=== PATIENT | female | born 1950 | race Caucasian/White ===

== ENCOUNTER 2016-10-11 14:32 | Emergency (ER) | payer BC ==
[~2016-10-11] VITALS: Ht 160 cm; Wt 67.6 kg
[~2016-10-11 14:32] MED LIST: FLUT12AE5 IH; FLUT50DI IH; MONT10TA22 PO; PRO40 PO
[2016-10-11 14:43] VITALS: BP_SYST 163
[2016-10-11 15:23] LABS: BASOPHILS # (AUTO) 0.1 K/uL (0.0-0.2); BASOPHILS % (AUTO) 0.9 % (0.0-2.0); EOSINOPHILS # (AUTO) 0.1 K/uL (0.0-0.4); EOSINOPHILS % (AUTO) 2.1 % (0.0-4.0); HEMATOCRIT 42.1 % (36-48); HEMOGLOBIN 14.7 g/dL (12.0-16.0); LYMPHOCYTES # (AUTO) 0.9 K/uL (1.0-5.5); MEAN CORPUSCULAR HEMOGLOBIN 32 pg (27-31); MEAN CORPUSCULAR HGB CONC 35 % (32-36); MEAN CORPUSCULAR VOLUME 91 fL (79.0-98.0); MONOCYTES # (AUTO) 0.4 K/uL (0.0-1.0); MONOCYTES % (AUTO) 6.9 % (1.7-9.3); NEUTROPHILS # (AUTO) 4.7 K/uL (1.8-7.7); NEUTROPHILS % (AUTO) 75.1 % (40.0-70.0); PLATELET COUNT (AUTO) 159 K/uL (130-430); RED CELL DISTRIBUTION WIDTH 11.8 % (9.0-15.0); WHITE BLOOD COUNT (AUTO) 6.2 K/uL (4.8-10.8)
--- NOTE | 2016-10-11 15:31 | NUR ---
Patient to ER bed H1 to gown for evaluation. Side rails up.
[2016-10-11 15:40] LABS: CALCIUM 9.5 mg/dL (8.4-11.0); CREATININE 1.46 mg/dL (0.55-1.30)
[2016-10-11 15:45] LABS: ALBUMIN 4.3 g/dL (3.4-4.8); TOTAL PROTEIN, SERUM 7.5 g/dL (6.4-8.3)
[2016-10-11 15:53] LABS: BILIRUBIN,URINE NEGATIVE (NEGATIVE); CLARITY/URINE CLEAR (CLEAR); COLOR,URINE YELLOW (YELLOW); GLUCOSE,URINE NEGATIVE (NEGATIVE); KETONES,URINE NEGATIVE (NEGATIVE); LEUKOCYTE ESTERASE ,URINE NEGATIVE (NEGATIVE); NITRITE, URINE NEGATIVE (NEGATIVE); PROTEIN URINE NEGATIVE (NEGATIVE); UROBILINOGEN,URINE 0.2 (0.2-1.0)
[2016-10-11 16:30] LABS: BLOOD, URINE TRACE (NEGATIVE)
--- NOTE | 2016-10-11 16:50 | NUR ---
AMBULATED TO BED 6
[2016-10-11 16:52] LABS: BACTERIA,URINE FEW /HPF (None Seen); RBC,URINE 0-3 /HPF (0-3); WBC,URINE 0-3 /HPF (0-3)
[2016-10-11 16:53] LABS: COARSE GRANULAR CASTS,URINE 0-10 /LPF (None Seen); MUCUS,URINE 1+ /LPF (None Seen)
--- NOTE | 2016-10-11 17:04 | NUR ---
Placed on case monitor, blood pressure machine and pulse oximeter. To gown for exam. Side rails up.
--- NOTE | 2016-10-11 17:05 | NUR ---
pt c/o elevated blood pressure,abdominal pain,nausea,dizzy,gassy for three weeks, pt awake,alerted x 4, no acute distress noted.abdomen soft non-tender.
--- NOTE | 2016-10-11 17:21 | NUR ---
# 20 gauge angiocath placed to RAC. Use of asceptic technique. Opsite placed over site. Blood return noted. Flushed with 10 cc of normal saline. No evidence of infiltration noted. Patient tolerated well.
[2016-10-11] MEDS ORDERED: NACL 0.9% 1,000 ML IV ONE (18:15)
[2016-10-11] MEDS ORDERED: KETOROLAC TROMETHAMINE 30 MG VIAL IVP ONE (18:15)
[2016-10-11] MEDS ORDERED: PROCHLORPERAZINE EDISYLATE 10 MG/2 ML VIAL IVP ONE (18:15)
[2016-10-11] MEDS ORDERED: ONDANSETRON HCL 4 MG/2 ML VIAL IVP ONE (18:15)
--- NOTE | 2016-10-11 18:44 | NUR ---
medicated per md's orders
[2016-10-11] MEDS ORDERED: DIPHENHYDRAMINE INJ 50 MG/ML VIAL IVP ONE (19:00)
--- NOTE | 2016-10-11 19:02 | NUR ---
frankie after receving compazine,MD limon,benadryl ivp given per order
--- NOTE | 2016-10-11 19:10 | NUR ---
hand off to second shift supervisor nurse kendra FOX
--- NOTE | 2016-10-11 19:20 | NUR ---
MD Bolaños at bedside evaluating and discussing with pt
--- NOTE | 2016-10-11 19:20 | NUR ---
Meg malave in [facility] - 10/12/16 at 0134 by [email or web address] at bedside examining pt
--- NOTE | 2016-10-11 19:30 | NUR ---
Pt BP 183/97, MD Bolaños notified, awaiting order
--- NOTE | 2016-10-11 19:35 | NUR ---
MD Bolaños aware of Pt BP, instructed pt to follow up with PCP. Pt verbalized understanding, stated " i want to go home, i will see my doctor on Wednesday."
--- NOTE | 2016-10-11 19:36 | NUR ---
Pt was instructed to stay at ED for further monitor
--- NOTE | 2016-10-11 19:50 | NUR ---
Pt stated she wanted to be discharged and go home, pt received instruction to follow up and monitor self, and come back to ED if worsening of symptoms occurs. Pt verbalized understanding
[2016-10-11 19:55] VITALS: BP_SYST 176
--- NOTE | 2016-10-11 19:55 | NUR ---
Patient given written and verbal discharge instructions and verbalizes understanding. ER MD Bolaños discussed with patient the results and treatment provided. Given copies of tests performed in ER. Patient in stable condition. ID arm band removed. IV catheter removed intact and dressing applied, no active bleeding. No rx given. Patient educated on pain management and to follow up with PMD. Pain Scale 0/10 Opportunity for questions provided and answered.
[2016-10-11] MEDS ORDERED: HYDROmorphone 1 MG INJ. 1 MG/ML AMPUL IVP ONE (20:30)
[2016-10-11 21:00] LABS: PROTHROMBIN TIME 10.8 SECS (9.5-12.5)
== END 2016-10-11 19:55 | disposition home or self-care (01) ==
LOC: SED 14:32
DX: R10.31 Right lower quadrant pain (principal); R10.32 Left lower quadrant pain; K21.9 Gastro-esophageal reflux disease without esophagitis; J45.909 Unspecified asthma, uncomplicated
CPT/HCPCS: 36415; 74176; 80053; 81000; 83690; 83735; 85025; 85610; 96361; 96374; 96375; 99285; J0780; J1200; J1885; J2405; J7030

== ENCOUNTER 2017-01-05 07:30 | Emergency (ER) | payer BC ==
[~2017-01-05] VITALS: Ht 160 cm; Wt 59.0 kg
[2017-01-05 07:30] VITALS: BP_SYST 154
[2017-01-05] MEDS ORDERED: ATEN-41 PO (07:54)
[2017-01-05] MEDS ORDERED: VALA500T PO (07:54)
[2017-01-05] MEDS ORDERED: ALPR0.2583 PO (07:54)
[2017-01-05 08:46] LABS: BASOPHILS % (AUTO) 0.5 % (0.0-2.0); EOSINOPHILS # (AUTO) 0.1 K/uL (0.0-0.4); EOSINOPHILS % (AUTO) 1.1 % (0.0-4.0); HEMATOCRIT 36.9 % (36-48); HEMOGLOBIN 12.8 g/dL (12.0-16.0); LYMPHOCYTES # (AUTO) 0.9 K/uL (1.0-5.5); LYMPHOCYTES % (AUTO) 12.6 % (20.5-51.5); MEAN CORPUSCULAR HEMOGLOBIN 33 pg (27-31); MEAN CORPUSCULAR HGB CONC 35 % (32-36); MEAN CORPUSCULAR VOLUME 94 fL (79.0-98.0); MONOCYTES # (AUTO) 0.6 K/uL (0.0-1.0); MONOCYTES % (AUTO) 7.5 % (1.7-9.3); NEUTROPHILS # (AUTO) 5.8 K/uL (1.8-7.7); NEUTROPHILS % (AUTO) 78.3 % (40.0-70.0); PLATELET COUNT (AUTO) 150 K/uL (130-430); RED BLOOD CELL COUNT(AUTO) 3.91 MIL/uL (4.2-6.2); RED CELL DISTRIBUTION WIDTH 12.5 % (9.0-15.0); WHITE BLOOD COUNT (AUTO) 7.4 K/uL (4.8-10.8)
[2017-01-05 08:52] LABS: CALCIUM 9.3 mg/dL (8.4-11.0); CREATININE 1.3 mg/dL (0.55-1.30); POTASSIUM 4.7 mmol/L (3.5-5.1)
[2017-01-05 08:56] LABS: ALBUMIN 3.8 g/dL (3.4-4.8); TOTAL PROTEIN, SERUM 6.7 g/dL (6.4-8.3)
[2017-01-05 09:03] LABS: BILIRUBIN,URINE NEGATIVE (NEGATIVE); BLOOD, URINE NEGATIVE (NEGATIVE); CLARITY/URINE CLEAR (CLEAR); COLOR,URINE YELLOW (YELLOW); GLUCOSE,URINE NEGATIVE (NEGATIVE); KETONES,URINE NEGATIVE (NEGATIVE); LEUKOCYTE ESTERASE ,URINE NEGATIVE (NEGATIVE); NITRITE, URINE NEGATIVE (NEGATIVE); PROTEIN URINE NEGATIVE (NEGATIVE); UROBILINOGEN,URINE 0.2 (0.2-1.0)
[2017-01-05 10:32] VITALS: BP_SYST 122
== END 2017-01-05 10:32 | disposition home or self-care (01) ==
LOC: SED 07:30
DX: R16.0 Hepatomegaly, not elsewhere classified (principal); R10.31 Right lower quadrant pain; R10.32 Left lower quadrant pain; J45.909 Unspecified asthma, uncomplicated; K21.9 Gastro-esophageal reflux disease without esophagitis; I10 Essential (primary) hypertension; Z90.49 Acquired absence of other specified parts of digestive tract; Z79.899 Other long term (current) drug therapy
CPT/HCPCS: 36415; 80053; 81003; 83690-TC; 85025; 99285

== ENCOUNTER 2017-01-12 11:08 | Emergency (ER) | payer BC ==
[~2017-01-12] VITALS: Ht 160 cm; Wt 62.1 kg
[~2017-01-12 11:08] MED LIST changes: +ALPR0.2583 PO; +ATEN-41 PO; +VALA500T PO
[2017-01-12 11:28] VITALS: BP_SYST 157
[2017-01-12 12:38] LABS: BASOPHILS % (AUTO) 0.6 % (0.0-2.0); EOSINOPHILS % (AUTO) 0.6 % (0.0-4.0); HEMATOCRIT 38.3 % (36-48); LYMPHOCYTES # (AUTO) 0.9 K/uL (1.0-5.5); LYMPHOCYTES % (AUTO) 12.4 % (20.5-51.5); MEAN CORPUSCULAR HEMOGLOBIN 32 pg (27-31); MEAN CORPUSCULAR HGB CONC 34 % (32-36); MEAN CORPUSCULAR VOLUME 95 fL (79.0-98.0); MONOCYTES # (AUTO) 0.4 K/uL (0.0-1.0); MONOCYTES % (AUTO) 6.3 % (1.7-9.3); NEUTROPHILS # (AUTO) 5.8 K/uL (1.8-7.7); NEUTROPHILS % (AUTO) 80.1 % (40.0-70.0); PLATELET COUNT (AUTO) 149 K/uL (130-430); RED BLOOD CELL COUNT(AUTO) 4.05 MIL/uL (4.2-6.2); RED CELL DISTRIBUTION WIDTH 12.3 % (9.0-15.0); WHITE BLOOD COUNT (AUTO) 7.1 K/uL (4.8-10.8)
[2017-01-12 12:46] LABS: CALCIUM 9.4 mg/dL (8.4-11.0); CREATININE 1.22 mg/dL (0.55-1.30); POTASSIUM 3.7 mmol/L (3.5-5.1)
[2017-01-12 12:53] LABS: ALBUMIN 3.8 g/dL (3.4-4.8); TOTAL BILIRUBIN 1.1 mg/dL (0.0-1.0); TOTAL PROTEIN, SERUM 6.6 g/dL (6.4-8.3)
[2017-01-12 13:00] VITALS: BP_SYST 157
== END 2017-01-12 13:00 | disposition home or self-care (01) ==
LOC: SED 11:08
DX: R25.1 Tremor, unspecified (principal); I10 Essential (primary) hypertension; J45.909 Unspecified asthma, uncomplicated; R51 Headache; Z79.899 Other long term (current) drug therapy
CPT/HCPCS: 36415; 70450-TC; 80053; 83690-TC; 85025; 99285

== ENCOUNTER 2021-10-03 16:14 | Inpatient (IN) | payer OTHER, SELFPAY ==
[~2021-10-03] VITALS: Ht 160 cm; Wt 61.7 kg
[~2021-10-03 16:14] MED LIST changes: +ALPR0.25 PO; -ALPR0.2583 PO
[2021-10-03 16:18] VITALS: BP_SYST 145
[2021-10-03 17:55] LABS: MEAN CORPUSCULAR HEMOGLOBIN 32 pg (27-31); MEAN CORPUSCULAR HGB CONC 35 % (32-36); MEAN CORPUSCULAR VOLUME 92 fL (79.0-98.0); PLATELET COUNT (AUTO) 189 K/uL (130-430); RED BLOOD CELL COUNT(AUTO) 2.16 MIL/uL (4.2-6.2); RED CELL DISTRIBUTION WIDTH 14.4 % (9.0-15.0); WHITE BLOOD COUNT (AUTO) 2.9 K/uL (4.8-10.8)
[2021-10-03 18:14] LABS: HEMATOCRIT 19.9 % (36-48); HEMOGLOBIN 6.9 g/dL (12.0-16.0)
[2021-10-03 18:17] LABS: ALANINE AMINOTRANSFERASE 15 U/L (12-78); ALBUMIN 2.5 g/dL (3.4-4.8); ANION GAP 3 (5-15); ASPARTATE AMINOTRANSFERASE 21 U/L (10-37); CALCIUM 8.8 mg/dL (8.4-11.0); CHLORIDE 99 mmol/L (98-107); CREATININE 1.87 mg/dL (0.55-1.30); GLUCOSE 128 mg/dL (70-99); POTASSIUM 4.3 mmol/L (3.5-5.1); SODIUM SERUM 129 mmol/L (136-145); TOTAL BILIRUBIN 0.8 mg/dL (0.0-1.0); UREA NITROGEN, BLOOD 29 mg/dL (8-21)
[2021-10-03 18:38] LABS: BAND % (MANUAL) 0 % (0-6); BASOPHILS % (MANUAL) 0 % (0-2); EOSINOPHILS % (MANUAL) 3 % (0-7); LYMPHOCYTES % (MANUAL) 10 % (20-46); MONOCYTES % (MANUAL) 3 % (0-11)
[2021-10-03] MEDS ORDERED: AMIT10TA6 PO (20:18)
[2021-10-03] MEDS ORDERED: CARV6.2554 PO (20:18)
[2021-10-03] MEDS ORDERED: EPOE200011 SUBCUT (20:18)
[2021-10-03] MEDS ORDERED: HYDR-4039 PO (20:18)
[2021-10-03] MEDS ORDERED: ACYC400T19 PO (20:18)
[2021-10-03] MEDS ORDERED: FAMO-279 PO (20:18)
[2021-10-03 23:00] VITALS: BP_SYST 146
[2021-10-04] MEDS ORDERED: ACETAMINOPHEN 325 MG TABLET PO PRN (00:45)
[2021-10-04] MEDS ORDERED: NALOXONE HCL 0.4 MG/ML AMP (NARCAN) IVP PRN (00:45)
[2021-10-04] MEDS ORDERED: ONDANSETRON HCL 4 MG/2 ML VIAL IVP PRN ×2 (00:45→09:45)
[2021-10-04] MEDS ORDERED: ALBUTEROL SULFATE 0.083% 2.5 MG/3 ML VIAL.NEB INH PRN (00:45)
[2021-10-04] MEDS ORDERED: HYDROcodone/ACETAMIN 5-325 MG TAB (NORCO/ VICODIN) PO PRN (00:45)
[2021-10-04 03:28] VITALS: BP_SYST 140
[2021-10-04 04:00] VITALS: BP_SYST 148
[2021-10-04] MEDS: NORMAL SALINE 5 ML DISP.SYRIN IVF SCH ×3 (05:04→21:04)
[2021-10-04 08:00] VITALS: BP_SYST 137
[2021-10-04 08:01] LABS: ALANINE AMINOTRANSFERASE 17 U/L (12-78); ALBUMIN 2.2 g/dL (3.4-4.8); ANION GAP 12 (5-15); BASOPHILS % (AUTO) 0.9 % (0.0-2.0); CALCIUM 8.2 mg/dL (8.4-11.0); CHLORIDE 100 mmol/L (98-107); CREATININE 1.76 mg/dL (0.55-1.30); EOSINOPHILS % (AUTO) 1.7 % (0.0-4.0); GLUCOSE 97 mg/dL (70-99); LYMPHOCYTES # (AUTO) 0.4 K/uL (1.0-5.5); MEAN CORPUSCULAR HEMOGLOBIN 32 pg (27-31); MEAN CORPUSCULAR HGB CONC 35 % (32-36); MEAN CORPUSCULAR VOLUME 92 fL (79.0-98.0); MONOCYTES # (AUTO) 0.2 K/uL (0.0-1.0); NEUTROPHILS % (AUTO) 74.4 % (40.0-70.0); PLATELET COUNT (AUTO) 180 K/uL (130-430); POTASSIUM 4.1 mmol/L (3.5-5.1); RED BLOOD CELL COUNT(AUTO) 2.03 MIL/uL (4.2-6.2); RED CELL DISTRIBUTION WIDTH 14.3 % (9.0-15.0); SODIUM SERUM 133 mmol/L (136-145); TOTAL BILIRUBIN 1.5 mg/dL (0.0-1.0); UREA NITROGEN, BLOOD 27 mg/dL (8-21); WHITE BLOOD COUNT (AUTO) 2.7 K/uL (4.8-10.8)
[2021-10-04 09:05] LABS: ASPARTATE AMINOTRANSFERASE 18 U/L (10-37)
[2021-10-04] MEDS: hydrALAZINE HCL 25 MG TABLET PO SCH ×2 (09:26→21:03)
[2021-10-04] MEDS: CARVEDILOL 6.25 MG TABLET (COREG) PO SCH ×2 (09:26→21:02)
[2021-10-04 09:44] LABS: TOTAL IRON BIND. CAPACITY 132 ug/dL (250-450)
[2021-10-04] MEDS ORDERED: guaiFENesin/DEXTROMETHORPHAN 10 ML UDC PO PRN (09:45)
[2021-10-04] MEDS ORDERED: HYDROcodone/ACETAMIN 7.5-325 MG TAB PO PRN (09:45)
[2021-10-04] MEDS ORDERED: ZOLPIDEM TARTRATE 5 MG TABLET PO PRN (09:45)
[2021-10-04] MEDS ORDERED: DOCUSATE SODIUM 100 MG/10 ML UDC PO PRN (09:45)
[2021-10-04] MEDS ORDERED: ACETAMINOPHEN 500 MG TABLET PO PRN (09:45)
[2021-10-04] MEDS ORDERED: FLUTICASONE 100 mCg/SALMETEROL 50 mCg DISKUS W.DEV INH SCH (10:00)
[2021-10-04 10:22] LABS: HEMATOCRIT 18.6 % (36-48); HEMOGLOBIN 6.5 g/dL (12.0-16.0)
[2021-10-04 10:56] LABS: PHOSPHORUS 3.6 mg/dL (2.7-4.5)
[2021-10-04 11:22] LABS: INR 1.2 (0.8-1.2); PROTHROMBIN TIME 11.7 SECS (9.5-12.5)
[2021-10-04 11:52] LABS: FREE T4 (FREE THYROXINE) 1.3 ng/dl (0.8-1.5); THYROID STIMULATING HORMONE 3.02 uIu/mL (0.36-3.74)
[2021-10-04 12:00] VITALS: BP_SYST 130
[2021-10-04] MEDS ORDERED: COMMUNICATION ORDER XX ONE (12:45)
[2021-10-04] MEDS: NACL 0.9% 1,000 ML IV SCH (13:43)
[2021-10-04 16:00] VITALS: BP_SYST 123
[2021-10-04 20:58] LABS: BILIRUBIN,URINE NEGATIVE (NEGATIVE); BLOOD, URINE 2+ (NEGATIVE); COLOR,URINE YELLOW (YELLOW); GLUCOSE,URINE NEGATIVE (NEGATIVE); KETONES,URINE NEGATIVE (NEGATIVE); LEUKOCYTE ESTERASE ,URINE TRACE (NEGATIVE); NITRITE, URINE NEGATIVE (NEGATIVE); PROTEIN URINE TRACE (NEGATIVE)
[2021-10-04 21:00] VITALS: BP_SYST 137
[2021-10-04 21:04] LABS: CLARITY/URINE HAZY (CLEAR)
[2021-10-04 21:18] LABS: BARBITURATE, URINE NEGATIVE (NEG <=200); BENZODIAZEPINE, URINE NEGATIVE (NEG <=150); CANNABINOID, URINE NEGATIVE (NEG <=50); COCAINE, URINE NEGATIVE (NEG <=150); METHAMPHETAMINES SCREEN,URINE NEGATIVE (NEG <=500); OPIATE, URINE NEGATIVE (NEG <=100); PHENCYCLIDINE SCREEN,URINE NEGATIVE (NEG <=25); UR TRICYCLIC ANTIDEPRESSANTS POSITIVE (NEG <=300); URINE AMPHETAMINE NEGATIVE (NEG <=500); URINE METHADONE NEGATIVE (NEG <=200); URINE OXYCODONE SCREEN NEGATIVE (NEG <=100); URINE PROPOXYPHENE SCREEN NEGATIVE (NEG <=300)
[2021-10-04 21:23] LABS: BACTERIA,URINE FEW /HPF (None Seen); MUCUS,URINE 1+ /LPF (None Seen); WBC,URINE 0-3 /HPF (0-3)
[2021-10-05 00:33] VITALS: BP_SYST 126
[2021-10-05] MEDS: NACL 0.9% 1,000 ML IV SCH ×2 (02:32→21:59)
[2021-10-05] MEDS: NORMAL SALINE 5 ML DISP.SYRIN IVF SCH ×3 (06:23→21:58)
[2021-10-05 08:23] LABS: CALCIUM 8.1 mg/dL (8.4-11.0); CREATININE 1.68 mg/dL (0.55-1.30); GLUCOSE 94 mg/dL (70-99); UREA NITROGEN, BLOOD 28 mg/dL (8-21)
[2021-10-05 08:25] VITALS: BP_SYST 149
[2021-10-05] MEDS: ADVAIR HFA 115/21 MCG INHALER INH SCH (08:56)
[2021-10-05] MEDS: CARVEDILOL 6.25 MG TABLET (COREG) PO SCH ×2 (08:57→21:57)
[2021-10-05] MEDS: PANTOPRAZOLE SODIUM 40 MG TAB PO SCH (08:59)
[2021-10-05] MEDS ORDERED: POTASSIUM CHLORIDE 20 MEQ TAB.PRT.SR PO PRN (09:00)
[2021-10-05] MEDS: hydrALAZINE HCL 25 MG TABLET PO SCH ×2 (09:00→21:58)
[2021-10-05 09:02] LABS: BASOPHILS % (AUTO) 0.6 % (0.0-2.0); EOSINOPHILS # (AUTO) 0.1 K/uL (0.0-0.4); EOSINOPHILS % (AUTO) 1.1 % (0.0-4.0); HEMATOCRIT 23.5 % (36-48); HEMOGLOBIN 8.2 g/dL (12.0-16.0); LYMPHOCYTES # (AUTO) 0.4 K/uL (1.0-5.5); LYMPHOCYTES % (AUTO) 7.8 % (20.5-51.5); MEAN CORPUSCULAR HEMOGLOBIN 32 pg (27-31); MEAN CORPUSCULAR HGB CONC 35 % (32-36); MEAN CORPUSCULAR VOLUME 92 fL (79.0-98.0); MONOCYTES # (AUTO) 0.3 K/uL (0.0-1.0); MONOCYTES % (AUTO) 6.5 % (1.7-9.3); PLATELET COUNT (AUTO) 171 K/uL (130-430); RED BLOOD CELL COUNT(AUTO) 2.57 MIL/uL (4.2-6.2); RED CELL DISTRIBUTION WIDTH 13.8 % (9.0-15.0); WHITE BLOOD COUNT (AUTO) 4.7 K/uL (4.8-10.8)
[2021-10-05 09:47] LABS: ANION GAP 10 (5-15); CHLORIDE 102 mmol/L (98-107); POTASSIUM 4.2 mmol/L (3.5-5.1); SODIUM SERUM 133 mmol/L (136-145)
[2021-10-05 12:00] VITALS: BP_SYST 112
[2021-10-05 16:00] VITALS: BP_SYST 138
[2021-10-05 21:00] VITALS: BP_SYST 135
[2021-10-06 01:15] VITALS: BP_SYST 119
[2021-10-06] MEDS: NORMAL SALINE 5 ML DISP.SYRIN IVF SCH ×2 (04:27→14:23)
[2021-10-06 06:22] LABS: BASOPHILS % (AUTO) 0.7 % (0.0-2.0); EOSINOPHILS # (AUTO) 0.1 K/uL (0.0-0.4); EOSINOPHILS % (AUTO) 1.7 % (0.0-4.0); HEMATOCRIT 22.5 % (36-48); HEMOGLOBIN 7.7 g/dL (12.0-16.0); LYMPHOCYTES # (AUTO) 0.4 K/uL (1.0-5.5); LYMPHOCYTES % (AUTO) 10.3 % (20.5-51.5); MEAN CORPUSCULAR HEMOGLOBIN 31 pg (27-31); MEAN CORPUSCULAR HGB CONC 34 % (32-36); MEAN CORPUSCULAR VOLUME 91 fL (79.0-98.0); MONOCYTES # (AUTO) 0.3 K/uL (0.0-1.0); MONOCYTES % (AUTO) 7.7 % (1.7-9.3); NEUTROPHILS # (AUTO) 3.2 K/uL (1.8-7.7); NEUTROPHILS % (AUTO) 79.6 % (40.0-70.0); PLATELET COUNT (AUTO) 161 K/uL (130-430); RED BLOOD CELL COUNT(AUTO) 2.47 MIL/uL (4.2-6.2); RED CELL DISTRIBUTION WIDTH 14.1 % (9.0-15.0)
[2021-10-06 08:00] VITALS: BP_SYST 134
[2021-10-06] MEDS: ADVAIR HFA 115/21 MCG INHALER INH SCH (08:22)
[2021-10-06] MEDS: CARVEDILOL 6.25 MG TABLET (COREG) PO SCH (08:23)
[2021-10-06] MEDS: PANTOPRAZOLE SODIUM 40 MG TAB PO SCH (08:23)
[2021-10-06] MEDS: hydrALAZINE HCL 25 MG TABLET PO SCH (08:24)
[2021-10-06 08:31] LABS: ANION GAP 10 (5-15); CALCIUM 7.9 mg/dL (8.4-11.0); CHLORIDE 100 mmol/L (98-107); CREATININE 1.62 mg/dL (0.55-1.30); GLUCOSE 96 mg/dL (70-99); SODIUM SERUM 130 mmol/L (136-145); UREA NITROGEN, BLOOD 32 mg/dL (8-21)
[2021-10-06] MEDS ORDERED: FERROUS SULFATE 325 MG TABLET.DR PO SCH (09:00)
[2021-10-06] MEDS ORDERED: FOLIC ACID 1 MG TABLET PO SCH (09:00)
[2021-10-06 12:30] VITALS: BP_SYST 116
[2021-10-06 15:14] LABS: TOTAL IRON BIND. CAPACITY 123 ug/dL (250-450)
[2021-10-06 15:37] VITALS: BP_SYST 124
[2021-10-06 16:29] VITALS: BP_SYST 124
[2021-10-07 07:07] LABS: FOLATE (FOLIC ACID) 17.3 ng/mL (>3.0)
== END 2021-10-06 18:18 | disposition home or self-care (01) | DRG 682 ==
LOC: SED 16:14 → STU 20:03
PROVIDERS: ADMIT Internal Medicine Hospice and Palliative Medicine; ATTEND Internal Medicine Hospice and Palliative Medicine
PROC: 30233N1 Transfusion of Nonautologous Red Blood Cells into Peripheral Vein, Percutaneous Approach (ICD-10-PCS; principal; 2021-10-04)
DX: I12.9 Hypertensive chronic kidney disease with stage 1 through stage 4 chronic kidney disease, or unspecified chronic kidney disease (principal); E43 Unspecified severe protein-calorie malnutrition; G93.41 Metabolic encephalopathy; N17.0 Acute kidney failure with tubular necrosis; E87.1 Hypo-osmolality and hyponatremia; D63.1 Anemia in chronic kidney disease; F41.9 Anxiety disorder, unspecified; J45.909 Unspecified asthma, uncomplicated; N18.9 Chronic kidney disease, unspecified; I80.9 Phlebitis and thrombophlebitis of unspecified site; Z20.822 Contact with and (suspected) exposure to COVID-19; D72.819 Decreased white blood cell count, unspecified; K21.9 Gastro-esophageal reflux disease without esophagitis; R31.29 Other microscopic hematuria; D50.0 Iron deficiency anemia secondary to blood loss (chronic); Z79.899 Other long term (current) drug therapy; Z90.49 Acquired absence of other specified parts of digestive tract; Z68.24 Body mass index [BMI] 24.0-24.9, adult
CPT/HCPCS: 36415; 36430; 71045; 76700-TC; 76770; 80048; 80053; 80061; 80307; 81000; 82150; 82272; 82607; 82746; 83010; 83036; 83540; 83550; 83605; 83690; 83735; 83880; 84100; 84439; 84443; 84484; 85007; 85025; 85027; 85044; 85610-TC; 85730-TC; 86886; 86900; 86901; 86920; 87086; 93005; 93970; 99285; G0378; P9021